=== PATIENT | male | born 1990 | race Caucasian/White ===

== ENCOUNTER 2021-11-17 02:53 | Emergency (ER) | payer OTHER ==
[~2021-11-17] VITALS: Ht 165.1 cm; Wt 108.5 kg
[2021-11-17] MEDS ORDERED: EPINEPHrine 1:10,000 [1 MG/10 ML] SYRINGE IVP ONE (02:55)
[2021-11-17] MEDS ORDERED: 0.9% SODIUM CHLORIDE 10 ML SYRINGE IVP ONE (02:55)
[2021-11-17] MEDS ORDERED: ETOMIDATE 2 MG/ML 10 ML VIAL ONE (02:59)
[2021-11-17] MEDS ORDERED: SUCCINYLCHOLINE CHLORIDE 20 MG/ML 10 ML VIAL ONE (03:00)
[2021-11-17] MEDS ORDERED: RAPID SEQUENCE KIT [RSI] 1 EACH KIT MISC ONE (03:00)
[2021-11-17] MEDS ORDERED: NOREPINEPHRINE 4 MG/D5%-WATER 250 ML IV ONE (03:58)
[2021-11-17] MEDS ORDERED: PHENYLEPHRINE HCL IN 0.9% NACL 400 MCG/10 ML SYRINGE IVP ONE ×3 (03:58→07:50)
[2021-11-17 03:59] LABS: APPEARANCE,URINE CLEAR (CLEAR); BILIRUBIN,URINE NEGATIVE (NEGATIVE); GLUCOSE, URINE (UA) NEGATIVE (NEGATIVE); KETONES,URINE TRACE mg/dL (NEGATIVE); LEUKOCYTE ESTERASE ,URINE NEGATIVE (NEGATIVE); NITRATE,URINE NEGATIVE (NEGATIVE); OCCULT BLOOD,URINE LARGE (NEGATIVE); PH,URINE 5.5 (5.0-8.0); PROTEIN,URINE POS 1+ (NEGATIVE); UROBILINOGEN,URINE 0.2 mg/dL (<=1.0)
[2021-11-17 04:08] LABS: D-DIMER 1.21 mg/L FEU (0.00-0.50)
[2021-11-17] MEDS ORDERED: ACETAMINOPHEN 1000 MG/ISO-OSM 100 ML IV ONE ×2 (04:10→04:15)
[2021-11-17 04:26] LABS: BILIRUBIN,TOTAL 0.4 mg/dL (0.1-1.0); CALCIUM, TOTAL 7.7 mg/dL (8.8-10.5); CREATININE 2.98 mg/dL (0.60-1.30); TOTAL PROTEIN, SERUM 7.7 g/dL (6.4-8.2)
[2021-11-17] MEDS ORDERED: DIPH25CA85 PO (04:38)
[2021-11-17] MEDS ORDERED: LEVO25TA9 PO (04:38)
[2021-11-17] MEDS ORDERED: PHEN10TA PO (04:38)
[2021-11-17] MEDS ORDERED: FLUT16H NASAL (04:38)
[2021-11-17] MEDS ORDERED: ALLO100T2 PO (04:38)
[2021-11-17] MEDS ORDERED: METF-1211 PO (04:38)
[2021-11-17] MEDS ORDERED: INDO-16 PO (04:38)
[2021-11-17 05:17] LABS: ABG BASE EXCESS -15.5 mmol/L (-2.0-3.0); ABG CARBOXYHEMOGLOBIN 0.6 % (0.0-1.5); ABG HCO3 12.9 mmol/L (22.0-26.0); ABG METHEMOGLOBIN 0.2 % (0.0-1.5); ABG OXYGEN CONTENT 14.1 mL/dL (15.0-23.0); ABG OXYHEMOGLOBIN 71.5 % (94.0-100.0); ABG PCO2 42 mmHg (35-45); PO2, ARTERIAL BG 56.4 mmHg (92.0-100.0); SOURCE, BLOOD GAS ARTERIAL; TEMPERATURE, FAHRENHEIT, BG 101.4 FAHREN (96.0-98.6)
[2021-11-17 05:18] LABS: ABG OXYGEN SATURATION 72.1 % (95.0-98.0); ABG PH 7.133 (7.350-7.450); SITE, BLOOD GAS LFT RADIAL
[2021-11-17 05:19] LABS: O2 DEVICE,BLOOD GAS VENTILATOR (ROOM AIR); PEEP,BG 12 cm H2O; SPONTANEOUS VT, BG 487 ml; VT, ABG 500 ml
[2021-11-17 05:24] LABS: COVID AG,FIA SOURCE NASOPHARYNGEAL
[2021-11-17 05:35] LABS: POTASSIUM 6.4 mmol/L (3.5-5.1)
[2021-11-17 05:44] LABS: EOSINOPHILS % (AUTO) 0 % (1.0-6.0); HEMATOCRIT 40.3 % (41-53); HEMOGLOBIN 13.5 g/dL (13.5-17.5); LYMPHOCYTES # (AUTO) 1.1 K/uL (1.0-4.8); LYMPHOCYTES % (AUTO) 19.7 % (22.0-44.0); MEAN CORPUSCULAR HGB CONC 33.5 G/dL (31.0-37.0); MEAN CORPUSCULAR VOLUME 96 fL (80-100); MONOCYTES # (AUTO) 0.5 K/uL (0.1-1.0); MONOCYTES % (AUTO) 8.8 % (2.0-9.0); NEUTROPHILS # (AUTO) 4.1 K/uL (1.8-7.7); NEUTROPHILS % (AUTO) 70.5 % (40.0-70.0); PLATELET COUNT (AUTO) 141 K/uL (150-450); RED BLOOD CELL COUNT(AUTO) 4.21 MIL/uL (4.50-5.90)
[2021-11-17] MEDS ORDERED: SODIUM BICARBONATE [ADULT] 8.4% 50 MEQ/50 ML SYRINGE IVP ONE (06:00)
[2021-11-17] MEDS ORDERED: INSULIN REGULAR, HUMAN 100 UNITS/ML IVP ONE (06:00)
[2021-11-17 07:21] LABS: BACTERIA,URINE None Seen /HPF (None Seen); WBC,URINE None Seen /HPF (0-5)
[2021-11-17 07:28] VITALS: BP 83/55
[2021-11-17] MEDS ORDERED: NOREPINEPHRINE 4 MG/D5%-WATER 250 ML IV PRN (07:30)
[2021-11-17] MEDS ORDERED: PHENYLEPHRINE 200 MG/D5%-WATER 250 ML IV PRN (07:45)
== END 2021-11-17 11:03 ==
LOC: EMS 02:54
DX: U07.1 COVID-19 (principal); I46.9 Cardiac arrest, cause unspecified; J96.90 Respiratory failure, unspecified, unspecified whether with hypoxia or hypercapnia; E11.9 Type 2 diabetes mellitus without complications; Z88.1 Allergy status to other antibiotic agents; Z79.899 Other long term (current) drug therapy
CPT/HCPCS: 31500; 36415; 36600; 71045; 80053; 81001; 82550; 82805; 83880; 84145; 84484; 85025; 85379; 85610; 85730; 87040; 87426; 92950; 93005; 96365; 96368; 96375; 99285; J0131; J0171; J0330; J1815; J2370; J3490 ×3; Q9967; U0003; X7700; 94002; 94003